=== PATIENT | female | born 1985 | race African-American/Black ===

== ENCOUNTER 2023-07-31 12:21 | Emergency (ER) | payer OTHER ==
[2023-07-31 12:37] VITALS: BP 126/69; PULSE 83; RESP 18; TEMP 98.6; BMI 29.9
== END 2023-07-31 15:31 | disposition home or self-care (01) ==
LOC: JER 12:21 → JERFT 12:21
DX: R05.9 Cough, unspecified (principal); W53.89XA Other contact with other rodent, initial encounter; Y93.89 Activity, other specified; Y92.009 Unspecified place in unspecified non-institutional (private) residence as the place of occurrence of the external cause
CPT/HCPCS: 99282-25